=== PATIENT | female | born 1960 | race Caucasian/White ===

== ENCOUNTER 2016-03-10 16:49 | Emergency (ER) | payer OTHER ==
[~2016-03-10] VITALS: Wt 79.0 kg
[2016-03-10] MEDS ORDERED: HYDROCODONE/APAP (5/325) TAB PO ONE (18:00)
--- NOTE | 2016-03-10 18:44 | ERD ---
ER Documentation Chief Complaint Date/Time DATE: 03/10/16 TIME: 18:33 Chief Complaint [facility] 55 y/o female presents to ED for left upper extremity pain and tenderness. Stated that she slipped and fell at around 10 AM, landed on her left side. Stated that she landed on her left upper extremity. Now requesting for an x-ray of her left shoulder, left elbow, left wrist, left hand. Pain was described as dull and achy with pain rate of 7/10. Denies headache, loss of consciousness, dizziness, blurry vision, changes in vision, photophobia, facial pain, ear pain, throat pain, difficulty swallowing, neck pain, shoulder pain, chest pain, cough, hemoptysis, abdominal pain, back pain, loss of appetite, nausea, vomiting, hematochezia, diarrhea, constipation, urinary symptoms, bladder and bowel incontinences, numbness or tingling sensation, difficulty walking, recent travel, recent exposure to illness, recent antibiotic use in the last 3 months, fever, chills. Allergy: NKA PMH: Cancer of left breast. Last chemo was last year. Family medical history: Denies Medications: Denies Surgery: Left mastectomy last year. Primary Social History: Does not work at this time. Smokes cigarettes occasionally. Denies use of alcohol, use of illegal drugs. ROS All systems reviewed and are negative except as per history of present illness. Allergies Allergies: Coded Allergies: No Known Allergies (Verified Allergy, Unknown, 01/27/15) PMhx/Soc History of Surgery: No Anesthesia Reaction: No Hx Neurological Disorder: No Hx Respiratory Disorders: No Hx Cardiac Disorders: No Hx Psychiatric Problems: No Hx Miscellaneous Medical Probl: No Hx Alcohol Use: No Hx Substance Use: No Hx Tobacco Use: Yes Smoking Status: Current every day smoker Physical Exam Vitals Vital Signs Date Time Temp Pulse Resp B/P Pulse Ox O2 Delivery O2 Flow Rate FiO2 03/10/16 16:52 98.0 78 18 126/84 99 Physical Exam CONSTITUTIONAL: Well-appearing; well-nourished; in no apparent distress. HEAD: Normocephalic; atraumatic. EYES: Conjunctiva clear, sclera non-icteric, EOM intact. PERRL Ears: Hearing intact. EACs clear, TMs non-bulging, non-inflamed, translucent & mobile, ossicles normal appearance, No obstructions, no erythema, no discharges Nose: No obstructions. No polyps. No external lesions. Mucosa non-inflamed. No external lesions, septum and turbinates normal. No rhinorrhea. No discharges. Frontal sinus is non-tender to palpation. Maxillary sinus is non-tender to palpation. MOUTH: Moist mucous membranes, no lesion, no obstructions, no vesicles, no thrush, patent airway Throat: Uvula in midline. Right tonsil is +1 with no erythema, no exudate. Left tonsil is +1 with no erythema, no exudate. Tolerating secretions well. Good gag reflex. Patent airway. Neck: Supple, without lesions, bruits, or adenopathy. No mass. Thyroid non- enlarged and non-tender to palpation. CHEST: Symmetrical chest. Respirations even and not labored. No retractions noted. CARDIOVASCULAR: Normal S1, S2. RRR. No murmurs, gallops. RESPIRATORY: Normal chest excursion with respiration; breath sounds clear and equal bilaterally; no wheezes, rhonchi, or rales. Breathing even and unlabored. Speaking in clear, full, and complete sentences w/ ease. ABDOMEN: Normal bowel sounds normal. Soft, round, non-distended, non-guarding, no tenderness, no rebound, no organomegaly, no masses, no pulsating abdominal mass. No hernia. No peritoneal signs. : No CVA tenderness. BACK: Symmetrical shoulder. Spine is midline without deformity, tenderness. No evidence of trauma or deformity. PELVIS: Stable pelvis. No evidence of trauma or deformity. MUSCULOSKELETAL: Normal gait and station. Good and full range of motion of the neck and spine without pain and difficulty. Right upper and lower extremities is unremarkable. Left shoulder has no obvious swelling or deformity but mild tenderness on palpation to lateral aspect. Left elbow has no obvious swelling and deformity, discoloration but has limited range of motion and is mild tenderness to palpation on medial and lateral aspect. Left forearm has no obvious swelling or deformity, discoloration with mild tenderness to palpation. Left wrist has no obvious swelling or deformity, discoloration that is mild tenderness, mild limitation on range of motion. Bilateral hips are unremarkable on exam. Left knee is unremarkable. Left ankle/foot is unremarkable. Circulation and sensation is intact capillary refills are within normal limits. No neurovascular deficits. Ambulatory with steady gait. NEUROVASCULAR: Distal pulses are present. Pedal pulse are present, equal, and normal. Capillary refills are < 2 seconds. NEUROLOGIC: Alert and oriented x4. Speaks full and clear sentences. Cranial Nerves II-XII normal. Sensation to pain, touch, and proprioception normal. Grossly unremarkable. No neurologic deficits. Romberg test is negative. PSYCHOLOGICAL: The patients mood and manner are appropriate. No hallucinations , delusions. Not SI. Not HI. Has the capacity to decide for self SKIN: Normal for age and ethnicity; warm; dry; good turgor; no apparent lesions or exudates. No rashes, hives, discoloration. Intact. Results 24 hrs Current Medications Medications (Trade) Dose Ordered Sig/Tammi Route PRN Reason Start Time Stop Time Status Last Admin Dose Admin Acetaminophen/ Hydrocodone Bitart (Colcord (5/325)) 1 tab ONCE ONCE PO 03/10/16 18:00 03/10/16 18:01 DC 03/10/16 17:40 Procedures/MDM Examination: Unremarkable examination except left shoulder has no obvious swelling or deformity but mild tenderness on palpation to lateral aspect. Left elbow has no obvious swelling and deformity, discoloration but has limited range of motion and is mild tenderness to palpation on medial and lateral aspect. Left forearm has no obvious swelling or deformity, discoloration with mild tenderness to palpation. Left wrist has no obvious swelling or deformity, discoloration that is mild tenderness, mild limitation on range of motion. Bilateral hips are unremarkable on exam. Left knee is unremarkable. Left ankle /foot is unremarkable. Circulation and sensation is intact capillary refills are within normal limits. No neurovascular deficits. Ambulatory with steady gait. Disease process, medical treatment was explained to the patient and family member. They verbalized understanding and agreed with the diagnostic tests, medical treatment, and follow-up care. Radiology: X-rays of left shoulder, left humerus, left elbow, left forearm, left wrist also revealed unremarkable, no fractures, no abnormalities. Treatment: Colcord. Left upper arm sling. Re-evaluation: Consultation: None Differential diagnosis: Fracture versus contusion versus sprain Medical decision [id number] y/o female presents to ED for left upper extremity pain and tenderness. Stated that she slipped and fell at around 10 AM, landed on her left side. Stated that she landed on her left upper extremity. Now requesting for an x-ray of her left shoulder, left elbow, left wrist, left hand. Pain was described as dull and achy with pain rate of 7/10. Patient's history, complaint, symptoms, diagnostic test results are consistent with a diagnosis of contusion, sprain. Medications prescribed are the following: Colcord. Patient and family member are made aware of the side effects and adverse reactions of the medications prescribed. Instructed on when to seek emergent and medical attention in case allergic/anaphylactic reactions or severe side effects and or adverse reactions to medications. Patient and family member verbalized understanding. Patient instructed Instructed to follow-up with his PCP in 24-48 hours. Primary care physician to refer patient to orthopedic doctor in 24-48 hours. Instructed to Call 911 for chest pain, shortness of breath. Advised to come back here in ED as soon as possible for severity of symptoms which includes but not limited to: any new symptoms; shortness of breath/difficulty of breathing; cardiovascular changes; severe gastrointestinal symptoms; signs and symptoms of bleeding and or infection; signs of compartment syndrome/neurovascular changes; neurological changes/deficits. Patient and family member verbalized understanding. Upon discharge, patient is alert and oriented x 4, speaks full and clear sentences, denies pain, has no neurological deficits, has no neurovascular deficits, difficulty of breathing. Breathing even and unlabored. Lung sounds are clear to auscultation. Not in distress. Appears comfortable. Ambulatory with steady gait. Appears satisfied with care provided here in ED. Departure Additional Instructions: Instructed to follow-up with his PCP in 24 hours. Primary care physician to refer patient to orthopedic doctor in 24-48 hours. Instructed to Call 911 for chest pain, shortness of breath. Advised to come back here in ED as soon as possible for severity of symptoms which includes but not limited to: any new symptoms; shortness of breath/difficulty of breathing; cardiovascular changes; severe gastrointestinal symptoms; signs and symptoms of bleeding and or infection; signs of compartment syndrome/neurovascular changes; neurological changes/deficits. Patient and family member verbalized understanding ALAN DENNIS Mar 10, 2016 18:43
--- NOTE | 2016-03-10 19:33 | RADRPT ---
PROCEDURE: XR Left humerus CLINICAL INDICATION: Fall, pain TECHNIQUE: AP and lateral radiographs were submitted. COMPARISON: None FINDINGS: Osseous structures: appear well mineralized and intact with no fracture or osseous destruction evid ent. Joint spaces: are well maintained with no significant erosion or spurring evident. There is no sig nificant joint effusion Soft tissues: appear unremarkable. IMPRESSION: Unremarkable left humerus. Physician Vimal Date Time Electronically viewed and signed by Ji Horowitz Physician on 03/10/2016 19:33 /
--- NOTE | 2016-03-10 19:34 | RADRPT ---
PROCEDURE: XR Left Wrist with Navicular View CLINICAL INDICATION: Fall, pain TECHNIQUE: AP, lateral, and oblique views as well as a carpal navicular view were submitted. COMPARISON: None FINDINGS: Osseous structures: appear well mineralized and intact with no fracture or destructive process iden tified. Joint spaces: are well maintained with no significant erosions or spurring identified. Soft tissues: appear unremarkable. IMPRESSION: Unremarkable left wrist with navicular view. Physician Vimal Date Time Electronically viewed and signed by Physician Vimal on 03/10/2016 19:34 /
--- NOTE | 2016-03-10 19:34 | RADRPT ---
PROCEDURE: XR Left Shoulder CLINICAL INDICATION: Fall, pain TECHNIQUE: AP internal and external rotation views and a Y-view were submitted. COMPARISON: None FINDINGS: Osseous structures: appear well mineralized and intact with no fracture or destructive process iden tified. Joint spaces: The glenohumeral joint appears unremarkable. The AC joint appears normal. Soft tissues: appear unremarkable. IMPRESSION: Unremarkable left shoulder. Physician Vimal Date Time Electronically viewed and signed by Ji Horowitz Physician on 03/10/2016 19:33 /
--- NOTE | 2016-03-10 19:35 | RADRPT ---
PROCEDURE: CR Left Elbow CLINICAL INDICATION: Fall, pain TECHNIQUE: AP, lateral, and an oblique radiographs were submitted. COMPARISON: None FINDINGS: Osseous Structures: The osseous elements appear well mineralized and intact. Joint Spaces: The joint spaces are well maintained. No joint effusion is evident. Soft Tissues: Appear unremarkable. IMPRESSION: Unremarkable left elbow series. Physician Vimal Date Time Electronically viewed and signed by Ji Horowitz Physician on 03/10/2016 19:34 /
[2016-03-10] MEDS ORDERED: HYDR-906 PO (19:58)
[2016-03-10 20:07] VITALS: BP 132/78; PULSE 76; RESP 18; TEMP 98
== END 2016-03-10 20:08 | disposition home or self-care (01) ==
LOC: FTE 16:49
DX: S40.012A Contusion of left shoulder, initial encounter (principal); S50.02XA Contusion of left elbow, initial encounter; S50.12XA Contusion of left forearm, initial encounter; S60.212A Contusion of left wrist, initial encounter; S63.502A Unspecified sprain of left wrist, initial encounter; S43.402A Unspecified sprain of left shoulder joint, initial encounter; S53.402A Unspecified sprain of left elbow, initial encounter; F17.210 Nicotine dependence, cigarettes, uncomplicated; W01.0XXA Fall on same level from slipping, tripping and stumbling without subsequent striking against object, initial encounter; Y92.9 Unspecified place or not applicable; Z85.3 Personal history of malignant neoplasm of breast
CPT/HCPCS: 73030; 73060; 73080; 73110; Z7502; Z7610

== ENCOUNTER 2017-03-07 08:04 | Day surgery (SDC) | END 2017-03-07 11:05 | disposition home or self-care (01) ==